=== PATIENT | female | born 1945 | race Caucasian/White ===

== ENCOUNTER 2018-06-10 11:34 | Day surgery (SDC) | payer MEDICARE, OTHER ==
[~2018-06-10] VITALS: Ht 154.9 cm; Wt 78.7 kg
[~2018-06-10 11:34] MED LIST: ALLO300 PO; AMIT25 PO; AMIT75 PO; BUPR150ER PO; BUPR150T2 PO; CEPH500 PO; CIPR500 PO; CYCL10; CYCL10 PO; FURO40 PO; HYDACE10 PO; HYDACE10B PO; LEVSOD100; LEVSOD125 PO; MORP30 PO; MORP30ER PO; MULVITMIND PO; OMEP10ER; OMEP20ER PO; OXYACE5C; OXYACE5T PO; PROM25 PO; SERT100; TRAZ100; TRAZ100 PO; TRAZ150T57 PO; VENL75ER PO
== END 2018-06-10 14:05 | disposition home or self-care (01) ==
LOC: ORSCSDS 11:34
PROVIDERS: Internal Medicine Gastroenterology
PROC: 0DB68ZX Excision of Stomach, Via Natural or Artificial Opening Endoscopic, Diagnostic (ICD-10-PCS; principal; 2018-06-10 13:00)
PROC: 0DJD8ZZ Inspection of Lower Intestinal Tract, Via Natural or Artificial Opening Endoscopic (ICD-10-PCS; principal; 2018-06-10 13:00)
PROC: 0DB88ZX Excision of Small Intestine, Via Natural or Artificial Opening Endoscopic, Diagnostic (ICD-10-PCS; principal; 2018-06-10 13:00)
DX: D50.9 Iron deficiency anemia, unspecified (principal); K21.9 Gastro-esophageal reflux disease without esophagitis; K29.70 Gastritis, unspecified, without bleeding; K44.9 Diaphragmatic hernia without obstruction or gangrene; Z86.010 Personal history of colon polyps; Z80.0 Family history of malignant neoplasm of digestive organs; K57.30 Diverticulosis of large intestine without perforation or abscess without bleeding; I10 Essential (primary) hypertension; G47.33 Obstructive sleep apnea (adult) (pediatric); E03.9 Hypothyroidism, unspecified; K76.0 Fatty (change of) liver, not elsewhere classified; G62.9 Polyneuropathy, unspecified; M79.7 Fibromyalgia; Z79.899 Other long term (current) drug therapy
CPT/HCPCS: 87081; 88305; J2370; J7120

== ENCOUNTER 2021-12-28 08:02 | Day surgery (SDC) | payer MEDICARE, OTHER ==
[~2021-12-28] VITALS: Ht 154.9 cm; Wt 78.7 kg
[2021-12-28] MEDS ORDERED: LOSA25 PO (08:36)
[2021-12-28] MEDS ORDERED: ROPI1 PO (08:36)
== END 2021-12-28 09:05 | disposition home or self-care (01) ==
LOC: ORSCSDS 08:02
PROVIDERS: Anesthesiology
PROC: 3E0R33Z Introduction of Anti-inflammatory into Spinal Canal, Percutaneous Approach (ICD-10-PCS; principal; 2021-12-28 09:00)
DX: M51.16 Intervertebral disc disorders with radiculopathy, lumbar region (principal); G47.33 Obstructive sleep apnea (adult) (pediatric); Z87.891 Personal history of nicotine dependence; I10 Essential (primary) hypertension; K44.9 Diaphragmatic hernia without obstruction or gangrene; E03.9 Hypothyroidism, unspecified; K21.9 Gastro-esophageal reflux disease without esophagitis; Z79.899 Other long term (current) drug therapy
CPT/HCPCS: J1040